=== PATIENT | male | born 1990 | race Caucasian/White ===

== ENCOUNTER 2018-10-06 22:43 | Emergency (ER) | payer BC ==
[~2018-10-06] VITALS: Ht 185.4 cm; Wt 114.6 kg
--- NOTE | 2018-10-06 22:58 | NUR ---
PT REPORTS DISCOLORATION TO FEET AND PAIN IN LEGS "IT IS SO BAD I CAN'T SLEEP. I AM ALWAY TIRED." PER TRIAGE NOTE
[2018-10-06 23:08] VITALS: BP 143/103
[2018-10-06] MEDS ORDERED: IBUPROFEN 600 MG TABLET ONE (23:16)
--- NOTE | 2018-10-06 23:28 | NUR ---
erp at bedside given motrin po pt is resting vss
[2018-10-06] MEDS ORDERED: IBUPROFEN 600 MG TABLET PO ONE (23:30)
--- NOTE | 2018-10-07 00:32 | NUR ---
given dc instruciton pt understood pt up ambulated to check out vss
== END 2018-10-07 00:35 | disposition home or self-care (01) ==
LOC: ED 23:59
DX: M79.662 Pain in left lower leg (principal); M79.661 Pain in right lower leg; W19.XXXA Unspecified fall, initial encounter; Y93.89 Activity, other specified; Y92.009 Unspecified place in unspecified non-institutional (private) residence as the place of occurrence of the external cause; Y99.8 Other external cause status
CPT/HCPCS: 93970; 99284

== ENCOUNTER 2019-10-08 08:14 | Emergency (ER) | payer BC, OTHER ==
[~2019-10-08] VITALS: Ht 185.4 cm; Wt 100.0 kg
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
[2019-10-08] MEDS ORDERED: ONDANSETRON ODT 4 MG ONE (09:54)
[2019-10-08] MEDS ORDERED: HYDROmorphone 1 MG/ML, 1ML INJ ONE (09:54)
[2019-10-08] MEDS ORDERED: HYDROmorphone 1 MG/ML, 1ML INJ IM ONE (10:00)
[2019-10-08] MEDS ORDERED: ONDANSETRON ODT 4 MG PO ONE (10:00)
[2019-10-08 11:00] VITALS: BP 129/74
--- NOTE | 2019-10-08 11:01 | NUR ---
PT RESTING ON GURNEY. NADN. TEJADA.
--- NOTE | 2019-10-08 11:11 | NUR ---
REPORT GIVEN TO NANI VANCE
== END 2019-10-08 12:23 ==
LOC: ED 12:17
DX: S16.1XXA Strain of muscle, fascia and tendon at neck level, initial encounter (principal); S39.012A Strain of muscle, fascia and tendon of lower back, initial encounter; S29.012A Strain of muscle and tendon of back wall of thorax, initial encounter; R51 Headache; F17.200 Nicotine dependence, unspecified, uncomplicated; M25.562 Pain in left knee; V49.09XA Driver injured in collision with other motor vehicles in nontraffic accident, initial encounter; Y93.89 Activity, other specified; Y92.410 Unspecified street and highway as the place of occurrence of the external cause; Y99.8 Other external cause status
CPT/HCPCS: 29505; 70450; 72125; 73564; 96372; 99284; J1170; Q0162

== ENCOUNTER 2019-10-09 13:28 | Emergency (ER) | payer BC, OTHER ==
[~2019-10-09] VITALS: Ht 185.4 cm; Wt 101.7 kg
[2019-10-09 13:42] VITALS: BP 130/84
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
== END 2019-10-09 14:13 | disposition home or self-care (01) ==
LOC: ED 14:10
DX: S16.1XXD Strain of muscle, fascia and tendon at neck level, subsequent encounter (principal); S39.012D Strain of muscle, fascia and tendon of lower back, subsequent encounter; S80.02XD Contusion of left knee, subsequent encounter; X58.XXXD Exposure to other specified factors, subsequent encounter
CPT/HCPCS: 99281

== ENCOUNTER 2019-10-12 21:32 | Emergency (ER) | payer BC, OTHER ==
[~2019-10-12] VITALS: Ht 185.4 cm; Wt 102.6 kg
--- NOTE | 2019-10-12 22:00 | NUR ---
PT WHEELED TO ROOM AT THIS TIME.
--- NOTE | 2019-10-12 22:03 | NUR ---
PT RESTING IN [facility] AT THIS TIME. AWAITING ERP.
--- NOTE | 2019-10-12 22:51 | NUR ---
ERP AT FOR PT HISTORY AND ASSESSMENT.
[2019-10-12] MEDS ORDERED: ONDANSETRON 2MG/ML, 2ML IVPush ONE (23:00)
[2019-10-12] MEDS ORDERED: MORPHINE SULFATE 4 MG/ML, 1ML IVPush ONE (23:00)
[2019-10-12] MEDS ORDERED: MORPHINE SULFATE 4 MG/ML, 1ML ONE (23:27)
[2019-10-12] MEDS ORDERED: ONDANSETRON 2MG/ML, 2ML ONE (23:27)
--- NOTE | 2019-10-13 00:05 | NUR ---
PT TO MR KATHY ESCAMILLA AT THIS TIME.
--- NOTE | 2019-10-13 00:43 | NUR ---
PT BACK FROM MRI. PT ASLEEP IN [facility]. CALL LIGHT IS WITHIN REACH.
--- NOTE | 2019-10-13 00:55 | NUR ---
CALL PTS BROTHER LENCHO FOR RIDE HOME IF/WHEN DC'ED [phone]
[2019-10-13 01:43] VITALS: BP 126/74
== END 2019-10-13 01:45 | disposition home or self-care (01) ==
LOC: ED 10-13 00:40
DX: G89.11 Acute pain due to trauma (principal); M54.5 Low back pain; F17.210 Nicotine dependence, cigarettes, uncomplicated; V49.40XA Driver injured in collision with unspecified motor vehicles in traffic accident, initial encounter; Y93.89 Activity, other specified; Y92.488 Other paved roadways as the place of occurrence of the external cause; Y99.8 Other external cause status
CPT/HCPCS: 72148; 99284; J2270; J2405